=== PATIENT | female | born 1990 | race Two or more races ===

== ENCOUNTER 2018-04-10 06:10 | Day surgery (SDC) | payer OTHER | END 2018-04-10 11:35 | disposition home or self-care (01) | LOC: AMB-ENDOS 06:10 | DX: D12.8 Benign neoplasm of rectum (principal) ==

== ENCOUNTER 2019-05-28 06:35 | Day surgery (SDC) | payer OTHER | END 2019-05-28 10:35 | disposition home or self-care (01) | LOC: AMB-ENDOS 06:35 → ADM 07:00 → AMB-ENDOS 10:35 | DX: D12.8 Benign neoplasm of rectum (principal) ==

== ENCOUNTER 2020-05-26 05:46 | Day surgery (SDC) | payer OTHER | END 2020-05-26 11:00 | disposition home or self-care (01) | LOC: AMB-ENDOS 05:46 | PROVIDERS: ATTEND Surgery | DX: D12.8 Benign neoplasm of rectum (principal); Z20.828 Contact with and (suspected) exposure to other viral communicable diseases ==